=== PATIENT | male | born 1950 | race Caucasian/White ===

== ENCOUNTER → 2016-10-25 | Outpatient (CLI) | payer MEDICARE, BC | END | disposition disaster alternative care site (69) | LOC: GRAD 09:36 | DX: C64.9 Malignant neoplasm of unspecified kidney, except renal pelvis (principal); R94.8 Abnormal results of function studies of other organs and systems; R91.8 Other nonspecific abnormal finding of lung field; I70.90 Unspecified atherosclerosis; Z95.0 Presence of cardiac pacemaker; Z98.890 Other specified postprocedural states ==

== ENCOUNTER → 2016-12-24 | Outpatient (CLI) | payer MEDICARE, BC | LOC: LGSMG 13:45 | DX: R80.9 Proteinuria, unspecified (principal) ==

== ENCOUNTER → 2016-12-27 | Outpatient (CLI) | payer MEDICARE, BC | END | disposition disaster alternative care site (69) | LOC: GRAD 10:18 | DX: E83.52 Hypercalcemia (principal); D89.9 Disorder involving the immune mechanism, unspecified; R59.0 Localized enlarged lymph nodes; Z94.0 Kidney transplant status; R59.9 Enlarged lymph nodes, unspecified; E04.1 Nontoxic single thyroid nodule ==